=== PATIENT | female | born 1950 | race Caucasian/White ===

== ENCOUNTER 2020-03-24 12:38 | Emergency (ER) | payer BC, MEDICARE ==
[2020-03-24] MEDS ORDERED: Sodium Chloride 0.9% 1,000 ML IV STA (13:25)
[2020-03-24] MEDS ORDERED: Sodium Chloride 0.9% 10 ML Syringe FLUSH PRN (13:25)
[2020-03-24] MEDS ORDERED: Ondansetron 4 MG/2 ML SDV IVPUSH ONE (13:28)
[2020-03-24] MEDS ORDERED: fentaNYL 100 MCG/2 ML SDV IVPUSH ONE (13:28)
--- NOTE | 2020-03-24 13:28 | EDM.PDOC ---
ED HPI GENERAL MEDICAL PROBLEM - General Chief Complaint: Abdominal Pain Stated Complaint: ABDOMINAL PAIN Time Seen by Provider: 03/24/20 13:21 Source of Information: Reports: Patient, Family, RN Notes Reviewed History Limitations: Reports: No Limitations - History of Present Illness INITIAL COMMENTS - FREE TEXT/NARRATIVE: 69-year-old female presents emergency department a complaint of abdominal pain, she states the pain started about a week ago has progressively gotten worse does have an ostomy in place secondary history of colon cancer status post resection. 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: Oncologic (Cancer) History: Reports: Breast, Colon - Infectious Disease History Infectious Disease History: Reports: Chicken Pox - Past Surgical History GI Surgical History: Reports: Colon, Colonoscopy, Colostomy Social & Family History - Tobacco Use Tobacco Use Status *Q: Never Tobacco User - Caffeine Use Caffeine Use: Reports: None - Recreational Drug Use Recreational Drug Use: No ED ROS GENERAL - Review of Systems Review Of Systems: See Below Constitutional: Reports: No Symptoms Respiratory: Reports: No Symptoms Cardiovascular: Reports: No Symptoms GI/Abdominal: Reports: Abdominal Pain, Constipation, Nausea. Denies: Bloody Stool, Vomiting : Reports: No Symptoms ED EXAM, GI/ABD - Physical Exam Exam: See Below Exam Limited By: No Limitations General Appearance: Alert, WD/WN, No Apparent Distress Respiratory/Chest: No Respiratory Distress, Lungs Clear, Normal Breath Sounds, No Accessory Muscle Use, Chest Non-Tender Cardiovascular: Regular Rate, Rhythm, No Murmur GI/Abdominal Exam: Normal Bowel Sounds, Soft, Distended, Tender (Right lower quadrant) Course - Vital Signs Last Recorded V/S: Last Vital Signs Temp 96.7 F L 03/24/20 13:05 Pulse 116 H 03/24/20 13:58 Resp 16 03/24/20 13:05 BP 131/67 12/27/20 13:58 Pulse Ox 97 03/24/20 13:58 - Orders/Labs/Meds Orders: Active Orders 24 hr Category Date Time Status Peripheral IV Care [RC] . DIRECTED Care 03/24/20 13:26 Active Sodium Chloride 0.9% [Normal Saline] 1,000 ml Med 03/24/20 13:25 Active IV .BOLUS Sodium Chloride 0.9% [Saline Flush] Med 03/24/20 13:25 Active 10 ml FLUSH ASDIRECTED PRN Peripheral IV Insertion Adult [OM.PC] Urgent Oth 03/24/20 13:25 Ordered Medication Orders Sodium Chloride (Normal Saline) 1,000 mls @ 500 mls/hr IV .BOLUS STA Stop: 03/24/20 15:24 Last Admin: 03/24/20 13:39 Dose: 500 mls/hr Documented by: TINY Sodium Chloride (Saline Flush) 10 ml FLUSH ASDIRECTED PRN PRN Reason: Keep Vein Open Last Admin: 03/24/20 14:13 Dose: 10 ml Documented by: [email or web address] Labs: Laboratory Tests 03/24/20 03/24/20 03/24/20 Range/Units 13:35 13:35 13:35 WBC 10.7 (4.5-11.0) K/uL RBC 4.26 (3.30-5.50) M/uL Hgb 12.5 (12.0-15.0) g/dL Hct 38.2 (36.0-48.0) % MCV 90 (80-98) fL MCH 29 (27-31) pg MCHC 33 (32-36) % Plt Count 494 H (150-400) K/uL Neut % (Auto) 77 H (36-66) % Lymph % (Auto) 9 L (24-44) % Cole % (Auto) 11 H (2-6) % Eos % (Auto) 1 L (2-4) % Baso % (Auto) 1 (0-1) % Sodium 134 L (140-148) mmol/L Potassium 4.5 (3.6-5.2) mmol/L Chloride 102 (100-108) mmol/L Carbon Dioxide 24 (21-32) mmol/L Anion Gap 12.5 (5.0-14.0) mmol/L BUN 19 H (7-18) mg/dL Creatinine 0.9 (0.5-1.0) mg/dL Est Cr Clr Drug Dosing 45.14 mL/min Estimated GFR (MDRD) > 60 (>60) BUN/Creatinine Ratio Not Reportable Glucose 112 H (74-106) mg/dL Lactic Acid 1.0 (0.4-2.0) mmol/L Calcium 8.4 L (8.5-10.1) mg/dL Total Bilirubin 0.4 (0.2-1.0) mg/dL AST 48 H (15-37) U/L ALT 31 (12-78) U/L Alkaline Phosphatase 79 (46-116) U/L Total Protein 6.5 (6.4-8.2) g/dL Albumin 2.7 L (3.4-5.0) g/dL Globulin 3.8 H (2.3-3.5) g/dL Albumin/Globulin Ratio 0.7 L (1.2-2.2) Lipase 116 (73-393) U/L Urine Color (YELLOW) Urine Appearance (CLEAR) Urine pH (5.0-8.0) Ur Specific [place] (1.008-1.030) Urine Protein (NEGATIVE) mg/dL Urine Glucose (UA) (NEGATIVE) mg/dL Urine Ketones (NEGATIVE) mg/dL Urine Occult Blood (NEGATIVE) Urine Nitrite (NEGATIVE) Urine Bilirubin (NEGATIVE) Urine Urobilinogen (0.2-1.0) EU/dL Ur Leukocyte Esterase (NEGATIVE) Urine RBC (0-5) Urine WBC (0-5) Ur Epithelial Cells Amorphous Sediment Urine Bacteria Urine Mucus 03/24/20 Range/Units 14:08 WBC (4.5-11.0) K/uL RBC (3.30-5.50) M/uL Hgb (12.0-15.0) g/dL Hct (36.0-48.0) % MCV (80-98) fL MCH (27-31) pg MCHC (32-36) % Plt Count (150-400) K/uL Neut % (Auto) (36-66) % Lymph % (Auto) (24-44) % Cole % (Auto) (2-6) % Eos % (Auto) (2-4) % Baso % (Auto) (0-1) % Sodium (140-148) mmol/L Potassium (3.6-5.2) mmol/L Chloride (100-108) mmol/L Carbon Dioxide (21-32) mmol/L Anion Gap (5.0-14.0) mmol/L BUN (7-18) mg/dL Creatinine (0.5-1.0) mg/dL Est Cr Clr Drug Dosing mL/min Estimated GFR (MDRD) (>60) BUN/Creatinine Ratio Glucose (74-106) mg/dL Lactic Acid (0.4-2.0) mmol/L Calcium (8.5-10.1) mg/dL Total Bilirubin (0.2-1.0) mg/dL AST (15-37) U/L ALT (12-78) U/L Alkaline Phosphatase (46-116) U/L Total Protein (6.4-8.2) g/dL Albumin (3.4-5.0) g/dL Globulin (2.3-3.5) g/dL Albumin/Globulin Ratio (1.2-2.2) Lipase (73-393) U/L Urine Color Yellow (YELLOW) Urine Appearance Slightly cloudy A (CLEAR) Urine pH 6.0 (5.0-8.0) Ur Specific [place] 1.020 (1.008-1.030) Urine Protein Negative (NEGATIVE) mg/dL Urine Glucose (UA) Negative (NEGATIVE) mg/dL Urine Ketones Negative (NEGATIVE) mg/dL Urine Occult Blood Negative (NEGATIVE) Urine Nitrite Negative (NEGATIVE) Urine Bilirubin Negative (NEGATIVE) Urine Urobilinogen 0.2 (0.2-1.0) EU/dL Ur Leukocyte Esterase Negative (NEGATIVE) Urine RBC Not seen (0-5) Urine WBC 0-5 (0-5) Ur Epithelial Cells Rare Amorphous Sediment Rare Urine Bacteria Not seen Urine Mucus Rare Meds: Medications Generic Name Dose Route Start Last Admin Trade Name Freq PRN Reason Stop Dose Admin Sodium Chloride 1,000 mls @ 500 mls/hr 03/24/20 13:25 03/24/20 13:39 Normal Saline IV 03/24/20 15:24 500 mls/hr .BOLUS STA Administration Sodium Chloride 10 ml 03/24/20 13:25 03/24/20 14:13 Saline Flush FLUSH 10 ml ASDIRECTED PRN Administration Keep Vein Open Discontinued Medications Generic Name Dose Route Start Last Admin Trade Name Nabilq PRN Reason Stop Dose Admin Fentanyl 50 mcg 03/24/20 13:28 03/24/20 13:42 Sublimaze IVPUSH 03/24/20 13:29 50 mcg ONETIME ONE Administration Sodium Chloride 73 mls @ 3.5 mls/sec 03/24/20 13:45 03/24/20 13:59 Normal Saline IV 03/24/20 13:46 2.5 mls/sec ASDIRECTED IRA Administration Iopamidol 108 ml 03/24/20 13:32 03/24/20 13:59 Isovue-300 (61%) IV 03/24/20 13:33 108 ml ONETIME ONE Administration Ondansetron HCl 4 mg 03/24/20 13:28 03/24/20 13:42 Zofran IVPUSH 03/24/20 13:29 4 mg ONETIME ONE Administration Sodium Chloride 10 ml 03/24/20 13:32 03/24/20 13:58 Saline Flush FLUSH 03/24/20 13:33 10 ml ONETIME ONE Administration Departure - Departure Time of Disposition: 14:44 Disposition: Home, Self-Care 01 Condition: Poor Clinical Impression: Uterine mass - Discharge Information Referrals: Manuel Arias MD [Primary Care Provider] - Forms: ED Department Discharge Additional Instructions: Please contact Dr. Arias in the morning so that he can help set up consultation with oncology and either event interventional radiology or surgery for biopsy Sepsis Event Note (ED) - Evaluation Sepsis Screening Result: Possible Sepsis Risk - Focused Exam Vital Signs: Vital Signs Temp Pulse Resp BP Pulse Ox 03/24/20 13:58 116 H 131/67 97 03/24/20 13:05 96.7 F L 136 H 16 156/85 H 95 03/24/20 13:00 96.7 F L 136 H 16 156/85 H 95 - My Orders Last 24 Hours: My Active Orders 03/24/20 13:25 Sodium Chloride 0.9% [Normal Saline] 1,000 ml IV .BOLUS Sodium Chloride 0.9% [Saline Flush] 10 ml FLUSH ASDIRECTED PRN Peripheral IV Insertion Adult [OM.PC] Urgent 03/24/20 13:26 Peripheral IV Care [RC] . DIRECTED - Assessment/Plan Last 24 Hours: My Active Orders 03/24/20 13:25 Sodium Chloride 0.9% [Normal Saline] 1,000 ml IV .BOLUS Sodium Chloride 0.9% [Saline Flush] 10 ml FLUSH ASDIRECTED PRN Peripheral IV Insertion Adult [OM.PC] Urgent 03/24/20 13:26 Peripheral IV Care [RC] . DIRECTED Plan: Assessment Acuity = acute Site and laterality = uterine mass consistent with endometrial cancer with metastases Etiology = unknown Manifestations = abdominal pain and distention Location of injury = Home Lab values = CBC, CMP, urinalysis unremarkable CT scan describes the abnormalities above Plan I did review her blood work and image studies plan she is going to consult her primary care tomorrow and then get that set up for referrals within the [facility] for biopsy and consultation with oncology, she will continue to use hydrocodone for pain control This note was dictated using [employer] voice recognition software please call with any questions on syntax or grammar.
[2020-03-24] MEDS ORDERED: Iopamidol 612 MG/ML 500 ML Multipack Bottle IV ONE (13:32)
[2020-03-24] MEDS: Sodium Chloride 0.9% 10 ML Syringe FLUSH ONE ×2 (13:39→13:58)
--- NOTE | 2020-03-24 14:33 | CRLCT ---
INDICATION: Right lower quadrant abdominal pain. COMPARISON: None. TECHNIQUE: CT of the abdomen and pelvis with IV contrast. 108 cc Isovue-300. FINDINGS: Noncalcified pulmonary nodule in the right lower lobe measures 10 mm in diameters (series 2, image 6). Additional smaller left lung base nodule (image 19). Moderate ascites. Circumscribed left hepatic cyst measures 2.5 cm in diameter. Cholelithiasis. Spleen, pancreas and adrenal glands are unremarkable. No obstructing renal calculus or hydronephrosis. Atherosclerotic abdominal aorta. Bladder is nondistended. Uterus is enlarged containing large amount of endometrial fluid and solid nodular enhancing components highly suspicious for malignancy. Extensive peritoneal and omental nodularity consistent with carcinomatosis. Enlarged cardiophrenic lymph nodes, largest on the left measuring 1.2 cm (series 2, image 22). Retro aortic left renal vein. Nonspecific sclerotic foci in the iliac bones, and in the sacrum. No evidence of bowel obstruction. Changes of colectomy and ileostomy. IMPRESSION: 1. Uterus is distended with large amount of endometrial fluid and solid nodular enhancing components suspicious for malignancy. 2. Ascites and findings of carcinomatosis. 3. Cardiophrenic lymph nodes suspicious for metastases. 4. Left lower lobe pulmonary nodule suspicious for metastases. 5. Cholelithiasis. 6. Nonspecific sclerotic foci in the iliac bones and sacrum. Findings discussed with Officer at 2:28 PM on 03/24/20. Please note that all CT scans at this facility use dose modulation, iterative reconstruction, and/or weight-based dosing when appropriate to reduce radiation dose to as low as reasonably achievable. Dictated by Mason Ladd MD @ Mar 24 2020 2:19PM Signed by Dr. Mason Ladd @ Mar 24 2020 2:32PM
== END 2020-03-24 15:10 | disposition home or self-care (01) ==
LOC: JP.ED 12:38
DX: N85.8 Other specified noninflammatory disorders of uterus (principal); I10 Essential (primary) hypertension; Z79.899 Other long term (current) drug therapy
CPT/HCPCS: 36415; 74177; 80053; 81001; 83605; 83690; 85025; 96374; 96375; 99284; J2405; J3010; J7030; Q9967

== ENCOUNTER 2020-03-26 10:23 | Emergency (ER) | payer MEDICARE ==
[2020-03-26] MEDS ORDERED: HYDROmorphone 1 MG/ML Syringe IM ONE (11:03)
[2020-03-26] MEDS ORDERED: Ondansetron 4 MG Tab.DIS PO ONE (11:38)
[2020-03-26] MEDS ORDERED: HYDROmorphone 0.5 MG/0.5 ML Syringe IVPUSH ONE (11:38)
--- NOTE | 2020-03-26 12:09 | EDM.PDOC ---
ED HPI GENERAL MEDICAL PROBLEM - General Chief Complaint: Abdominal Pain Stated Complaint: STOMACH PAIN Time Seen by Provider: 03/26/20 11:25 Source of Information: Reports: Patient, Family History Limitations: Reports: No Limitations - History of Present Illness INITIAL COMMENTS - FREE TEXT/NARRATIVE: 69-year-old female who was diagnosed with metastatic abdominal cancer and as cites just a few days ago, was going to see her primary provider later this week to set up a consultation, however she is feeling more discomfort and anxious and does not feel she can wait. Her colostomy is forming less stool, and her abdomen feels more distended. No fevers or chills, mild nausea but no vomiting. Onset: Gradual Duration: Week(s): (A few weeks of discomfort) Location: Reports: Abdomen Worsens with: Reports: Eating Associated Symptoms: Reports: Loss of Appetite, Malaise, Nausea/Vomiting. 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 Denies: Fever, Chills Respiratory: Denies: Shortness of Breath Cardiovascular: Denies: Chest Pain GI/Abdominal: Reports: Abdominal Pain, Nausea. Denies: Diarrhea (Stool is softer and less formed than usual, she has a colostomy chronically), Vomiting ED EXAM, GI/ABD - Physical Exam Exam: See Below Exam Limited By: No Limitations General Appearance: Alert, No Apparent Distress (Looks uncomfortable and anxious but no distress) Eyes: Bilateral: Normal Appearance (No jaundice) Head: Atraumatic Respiratory/Chest: No Respiratory Distress, Lungs Clear Cardiovascular: Regular Rate, Rhythm, Tachycardia GI/Abdominal Exam: Normal Bowel Sounds, Tender (Patient does feel somewhat distended, and has diffuse abdominal tenderness to palpation especially over the lower abdomen) Extremities: Normal Inspection Neurological: Alert, Oriented Course - Vital Signs Last Recorded V/S: Last Vital Signs Temp 98.8 F 03/26/20 10:40 Pulse 91 03/26/20 12:43 Resp 16 03/26/20 12:43 BP 126/90 03/26/20 12:43 Pulse Ox 92 L 03/26/20 12:43 - Orders/Labs/Meds Meds: Medications Discontinued Medications Generic Name Dose Route Start Last Admin Trade Name Freq PRN Reason Stop Dose Admin Hydromorphone HCl 1 mg 03/26/20 11:03 03/26/20 11:12 Dilaudid IM 03/26/20 11:04 1 mg ONETIME ONE Administration Ondansetron HCl 4 mg 03/26/20 11:38 03/26/20 11:44 Zofran Odt PO 03/26/20 11:39 4 mg ONETIME ONE Administration - Re-Assessments/Exams Free Text/Narrative Re-Assessment/Exam: 03/26/20 12:08 Patient was given 1 mg of IM Dilaudid, and oncology in [place] was consulted and images pushed through for their review and at this time awaiting return call. 03/26/20 12:31 Dr. [place] of oncology called back and the patient has an appointment tomorrow at [address] Segundo for an endometrial biopsy, and they are also trying to get interventional radiology to schedule a paracentesis. She was discharged with 10 hydrocodone for extra pain control. Departure - Departure Time of Disposition: 12:49 Disposition: Home, Self-Care 01 Clinical Impression: Uterine mass Abdominal pain Qualifiers: Abdominal location: lower abdomen, unspecified Qualified Code(s): R10.30 - Lower abdominal pain, unspecified - Discharge Information Instructions: Abdominal Pain, Adult, [id number] Referrals: Manuel Arias MD [Primary Care Provider] - Forms: ED Department Discharge Care Plan Goals: You have an appointment tomorrow at [address] Segundo, [facility] in [place] at [address] You may also hear from the radiology department regarding another test assessing your abdominal fluid. Use pain medication for pain control as needed. It may be helpful to arrive for your appointment 30 minutes early. Sepsis Event Note (ED) - Evaluation Sepsis Screening Result: No Definite Risk - Focused Exam Vital Signs: Vital Signs Temp Pulse Resp BP Pulse Ox 03/26/20 12:43 91 16 126/90 92 L 03/26/20 11:30 106 H 16 120/90 95 03/26/20 10:40 98.8 F 124 H 16 159/83 H 94 L
== END 2020-03-26 12:52 | disposition home or self-care (01) ==
LOC: JP.ED 10:23
DX: N85.8 Other specified noninflammatory disorders of uterus (principal); C76.2 Malignant neoplasm of abdomen; R00.0 Tachycardia, unspecified; I10 Essential (primary) hypertension; Z87.891 Personal history of nicotine dependence; Z79.899 Other long term (current) drug therapy
CPT/HCPCS: 96372; 99283; A9270; J1170

== ENCOUNTER 2020-04-19 05:08 | Emergency (ER) | payer MEDICARE ==
[2020-04-19] MEDS ORDERED: HYDROmorphone 1 MG/ML Syringe IM ONE (05:55)
--- NOTE | 2020-04-19 06:17 | EDM.PDOC ---
ED HPI GENERAL MEDICAL PROBLEM - General Chief Complaint: General Stated Complaint: LEG/BACK PAIN Time Seen by Provider: 04/19/20 05:44 Source of Information: Reports: Patient, Family, RN Notes Reviewed History Limitations: Reports: No Limitations - History of Present Illness INITIAL COMMENTS - FREE TEXT/NARRATIVE: 69-year-old female presents emergency department a complaint of increasing abdominal pain, I had the opportunity to evaluate her earlier this month concern for endometrial cancer she is undergone 5L fluid drainage from paracentesis interventional radiology biopsy visit with oncology also suspicious for endometrial cancer with metastases to the lung. Her biggest issue is pain control primary care has written for hydrocodone unfortunately this was denied by the insurance company bilateral leg and back pain Pain Score (Numeric/FACES): 10 - Related Data Allergies Allergy/AdvReac Type Severity Reaction Status Date / Time No Known Allergies Allergy Verified 04/19/20 05:18 Home Meds: Home Meds Hydrocodone/Acetaminophen [Hydrocodon-Acetaminophn 10-325] 1 tab PO BID PRN 03/24/20 [History] lisinopriL [Lisinopril] 10 mg PO DAILY 03/24/20 [History] Past Medical History HEENT History: Reports: Impaired Vision Cardiovascular History: Reports: Hypertension Other Respiratory History: left lung biopsy 04/17/20 Gastrointestinal History: Reports: Colon Polyp 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: Musculoskeletal History: Reports: Arthritis Oncologic (Cancer) History: Reports: Breast, Colon - Infectious Disease History Infectious Disease History: Reports: Chicken Pox - Past Surgical History Respiratory Surgical History: Reports: Lung Biopsies GI Surgical History: Reports: Appendectomy, Colon, Colonoscopy, Colostomy, Polypectomy Oncologic Surgical History: Reports: Biopsy of Breast Social & Family History - Tobacco Use Tobacco Use Status *Q: Never Tobacco User - Caffeine Use Caffeine Use: Reports: None - Recreational Drug Use Recreational Drug Use: No ED ROS GENERAL - Review of Systems Review Of Systems: See Below Constitutional: Reports: No Symptoms GI/Abdominal: Reports: Abdominal Pain ED EXAM, GENERAL - Physical Exam Exam: See Below Exam Limited By: No Limitations General Appearance: Alert, WD/WN, No Apparent Distress Respiratory/Chest: No Respiratory Distress GI/Abdominal: Soft, Non-Tender Course - Vital Signs Last Recorded V/S: Last Vital Signs Temp 97.0 F 04/19/20 05:21 Pulse 129 H 01/22/21 05:21 Resp 17 04/19/20 05:21 BP 148/78 H 04/19/20 05:21 Pulse Ox 95 04/19/20 05:21 - Orders/Labs/Meds Meds: Medications Discontinued Medications Generic Name Dose Route Start Last Admin Trade Name Marvin PRN Reason Stop Dose Admin Hydromorphone HCl 1 mg 04/19/20 05:55 04/19/20 05:58 Dilaudid IM 04/19/20 05:56 1 mg ONETIME ONE Administration Departure - Departure Time of Disposition: 06:11 Disposition: Home, Self-Care 01 Condition: Poor Clinical Impression: Cancer associated pain - Discharge Information Instructions: Chronic Pain, Adult Referrals: Manuel Arias MD [Primary Care Provider] - Additional Instructions: You can use the hydrocodone every 3 hours if needed, use in combination with your Aleve, recommend start MiraLAX to help with the chronic constipation from the narcotics. Please message your primary care for help with the insurance company and the pain medication. Call return to the emergency department worsening symptoms please keep your follow-up appointment with oncology Sepsis Event Note (ED) - Evaluation Sepsis Screening Result: No Definite Risk - Focused Exam Vital Signs: Vital Signs Temp Pulse Resp BP Pulse Ox 04/19/20 05:21 97.0 F 129 H 17 148/78 H 95 - Assessment/Plan Plan: Assessment Acuity = acute Site and laterality = abdominal pain Etiology = suspicious for endometrial cancer with metastases to the lungs official biopsy is pending Manifestations = none Location of injury = Home Lab values = none Plan Was able to fill the prescription for the Insta med hydrocodone 5/325 1 tab p.o. 3 times daily as needed total #20 she will keep her follow-up appointments with oncology This note was dictated using [employer] recognition software please call with any questions on syntax or grammar.
[2020-04-19] MEDS ORDERED: LORazepam 1 MG Tab PO ONE (06:23)
== END 2020-04-19 06:38 | disposition home or self-care (01) ==
LOC: JP.ED 05:08
DX: G89.3 Neoplasm related pain (acute) (chronic) (principal); I10 Essential (primary) hypertension; Z79.899 Other long term (current) drug therapy
CPT/HCPCS: 96372; 99283; A9270-GY; J1170